=== PATIENT | male | born 1945 ===

== ENCOUNTER 2017-12-22 12:38 | Inpatient (IN) | payer MEDICARE ==
[2017-12-22 12:38] VITALS: BMI 25.7
[2017-12-22 15:02] LABS: BASO # 0.1 K/uL (0.0-0.2); BASO % 0.7 % (0.0-2.0); EOS # 0.2 K/uL (0.0-0.7); EOS % 1.8 % (0.0-4.0); HEMOGLOBIN 12.3 g/dL (12.0-18.0); LYMPH # 1.8 K/uL (1.0-4.3); LYMPH % 21.2 % (20.0-40.0); MEAN CELL VOLUME 88.2 fl (80.0-94.0); MEAN CORPUSCULAR HEMOGLOBIN 29.8 pg (27.0-31.0); MEAN CORPUSCULAR HGB CONC 33.8 g/dL (33.0-37.0); MEAN PLATELET VOLUME 7.5 fl (7.2-11.7); MONO # 0.7 K/uL (0.0-0.8); MONO % 8.4 % (0.0-10.0); NEUT # 5.9 K/uL (1.8-7.0); NEUT % 67.9 % (50.0-75.0); NRBC % 0.1 % (0.0-0.0); RBC 4.11 Mil/uL (4.40-5.90); RED CELL DISTRIBUTION WIDTH 13.2 % (11.5-14.5); WHITE BLOOD COUNT 8.7 K/uL (4.8-10.8)
[2017-12-22 15:11] LABS: VENOUS BLOOD GAS BASE EXCESS 5.1 mmol/L (0.0-2.0); VENOUS BLOOD GAS PCO2 50 mmHg (40-60); VENOUS BLOOD GAS PO2 30 mm/Hg (30-55)
[2017-12-22 15:18] LABS: ALB/GLOB RATIO 1.1 (1.0-2.1); ALT/SGPT 29 U/L (21-72); AST/SGOT 41 U/L (17-59); BLOOD UREA NITROGEN 17 mg/dl (9-20); CALCIUM 9.5 mg/dL (8.4-10.2); GFR AFRICAN-AMERICAN > 60; GFR NON-AFRICAN AMERICAN > 60
--- NOTE | 2017-12-22 15:25 | CP.PCM.CON ---
History of Present Illness - History of Present Illness History of Present Illness: Podiatry Consult Note for attending Dr. Longo 72 year old male patient with PMHx of dementia, cerebral palsy was seen and evaluated in ED accompanied by his brother for posterior left leg wound. Patient was discharged from the hospital with a PICC line for IV Vancomycin and Cefepime a month ago but never followed up and pulled out his PICC line. Patient also reports that he was seen in the ED at the end of last month. Patient wound was exposed and patient doesn't do daily dressing for it. Patient brother states that the patient went twice to be admitted but he wasn't. He is AAOx3 and NAD at time of visit. Patient denies any other pedal complaints at this time. Denies any recent N/V/F/C/CP or SOB PMHx: dementia, cerebral palsy PSH: Hip replacement, leg wound debridement Allergies: NKDA SHx: Denies tobacco, alcohol or illicit drug use Past Patient History - Infectious Disease Hx of Infectious Diseases: None - Past Social History Smoking Status: Never Smoked - CARDIAC Hx Hypercholesterolemia: Yes (denies) Hx Hypertension: Yes (denies) - NEUROLOGICAL Hx Dementia: Yes - MUSCULOSKELETAL/RHEUMATOLOGICAL Hx Arthritis: Yes Hx Fractures: Yes (left hip) - PSYCHIATRIC Hx Substance Use: No - SURGICAL HISTORY Hx Joint Replacement: Yes (hip sx uses walker) - ANESTHESIA Hx Anesthesia: Yes Hx Anesthesia Reactions: No Hx Malignant Hyperthermia: No Meds Allergies/Adverse Reactions: Allergies Allergy/AdvReac Type Severity Reaction Status Date / Time No Known Allergies Allergy Verified 12/18/17 11:38 - Medications Medications: Current Medications Mupirocin (Bactroban Ointment) 1 applic TOP BID NIURKA Physical Exam - Constitutional Appears: Well, Non-toxic, No Acute Distress - Head Exam Head Exam: ATRAUMATIC, NORMOCEPHALIC - Extremities Exam Additional comments: Left LE focused exam: VASC: DP is 2/4, PT is 1/4. Cap refill time to all digits was <3 seconds. Minimal Non-pitting edema noted to distal 1/3 of lower leg. Skin temperature warm to cool from proximal to distal WNL DERM: Left posterior leg partial thickness ulceration noted along course of the lower 2/3 of Achilles tendon. Ulcer measures 6.7 x 2.8 X 0.5 cm which appears fibrotic necrotic 60:40. No undermining not tunnelling noted, no Malodor noted a this time. No active purulence or active drainage noted. no erythema, no tunneling, no tracking, no clinical signs of active infection NEURO: gross and protective sensation grossly intact b/l MSK: Mild tenderness on palpation of the wound, Pedal muscle strength graded as 5/5 to right side and 4/5 to left side on inversion and eversion resistance. ankle joint range of motion is limited to dorsiflexion and plantar flexion. - Neurological Exam Neurological exam: Alert, Oriented x3 - Psychiatric Exam Psychiatric exam: Normal Affect, Normal Mood Results - Vital Signs Recent Vital Signs: Last Vital Signs Temp 98.2 F 12/22/17 13:24 Pulse 84 12/22/17 13:24 Resp 18 12/22/17 13:24 BP 110/73 12/22/17 13:24 Pulse Ox 99 12/22/17 13:24 - Labs Result Diagrams: 12/22/17 14:56 Labs: Laboratory Results - last 24 hr 12/22/17 14:56 WBC 8.7 RBC 4.11 L Hgb 12.3 Hct 36.3 MCV 88.2 MCH 29.8 MCHC 33.8 RDW 13.2 Plt Count 340 MPV 7.5 Neut % (Auto) 67.9 Lymph % (Auto) 21.2 [place] % (Auto) 8.4 Eos % (Auto) 1.8 Baso % (Auto) 0.7 Neut # (Auto) 5.9 Lymph # (Auto) 1.8 [place] # (Auto) 0.7 Eos # (Auto) 0.2 Baso # (Auto) 0.1 Assessment & Plan - Assessment and Plan (Free Text) Assessment: 72 year old male seen and evaluated at the ED for posterior left leg wound Plan: Patient seen and evaluated Plan discussed with attending Dr. Longo Afebrile, absent leukocytosis Patient given one dose of Vancomycin and zosyn Wound culture was taken and sent to the lab. Wound dressing done using Xeroform, DSD and kurlix Patient instructed to keep dressings clean, dry and intact Patient will be admitted to the hospital by the primary team Patient will be followed in house by the podiatry team - Date & Time Date: 12/22/17 Time: 15:44
--- NOTE | 2017-12-22 15:34 | CARD ---
APPROVED REPORT Date of service: 12/22/2017 EKG Measurement Heart [id number] <Conclusion> Normal sinus rhythm Normal ECG
--- NOTE | 2017-12-22 16:07 | RAD ---
Date of service: 12/22/2017 PROCEDURE: Left Foot Radiographs. HISTORY: left heel ulcer COMPARISON: None. FINDINGS: BONES: Normal. No fracture. JOINTS: Normal. SOFT TISSUES: Normal. OTHER FINDINGS: None. IMPRESSION: Normal left foot radiographs. No plain radiographic evidence of osteomyelitis.
[2017-12-22] MEDS ORDERED: Piperacillin/Tazobact 3.375 GM in Sodium Chloride 0.9% 100 ML IV ONE (16:13)
[2017-12-22] MEDS ORDERED: Piperacillin/Tazobact 3.375 gm Inj IVPB ONE (16:17)
--- NOTE | 2017-12-22 16:40 | RAD ---
Date of service: 12/22/2017 HISTORY: admission, left foot ulcer COMPARISON: No prior. FINDINGS: LUNGS: No active pulmonary disease. PLEURA: No significant pleural effusion identified, no pneumothorax apparent. CARDIOVASCULAR: Normal. OSSEOUS STRUCTURES: Leftward thoracic convexity. Mild thoracic spondylosis. VISUALIZED UPPER ABDOMEN: Normal. OTHER FINDINGS: None. IMPRESSION: No active cardiopulmonary pathology noted
--- NOTE | 2017-12-22 17:01 | ED PDOC ---
HPI: General Adult Time Seen by Provider: 12/22/17 13:49 Chief Complaint (Nursing): Wound Check Chief Complaint (Provider): Wound, left heel History Per: Patient History/Exam Limitations: no limitations Onset/Duration Of Symptoms: Days Have you had recent travel within the past 21 days to any of the following countries: [place], [place], [place] or [place]?: No Current Symptoms Are (Timing): Still Present Additional Complaint(s): 72 yo male with history of dementia, non-compliant with medications, sent to ER by Dr. Longo for admission and treatment of right heel ulcer. Pt is with brother. Pt has been seen at [facility] but has not been taking his out patient antibiotics. According to podiatry pt also had PICC line at one point but removed it at home. Pt denies fever/chills. Pt lives alone but brother states he is in contact regularly. Past Medical History Reviewed: Historical Data, Nursing Documentation, Vital Signs Vital Signs: Last Vital Signs Temp 97.6 F 12/22/17 16:21 Pulse 61 12/22/17 16:21 Resp 19 12/22/17 16:21 BP 130/50 L 12/22/17 16:21 Pulse Ox 100 12/22/17 16:21 - Medical History PMH: Arthritis, Dementia, Fractures (left hip) Denies: HTN (denies), Hypercholesterolemia (denies) - Family History Family History: States: Unknown Family Hx - Immunization History Hx Tetanus Toxoid Vaccination: Yes Hx Influenza Vaccination: Yes Hx Pneumococcal Vaccination: Yes - Home Medications Home Medications: Ambulatory Orders Medication Instructions Recorded Memantine HCl [Namenda Xr] 14 mg PO DAILY 12/22/17 - Allergies Allergies/Adverse Reactions: Allergies Allergy/AdvReac Type Severity Reaction Status Date / Time No Known Allergies Allergy Verified 12/18/17 11:38 Review of Systems ROS Statement: Except As Marked, All Systems Reviewed And Found Negative Constitutional: Negative for: Fever, Chills Cardiovascular: Negative for: Chest Pain Respiratory: Negative for: Shortness of Breath Gastrointestinal: Negative for: Nausea, Vomiting Musculoskeletal: Negative for: Neck Pain Skin: Positive for: Other Neurological: Negative for: Weakness Physical Exam - Reviewed Nursing Documentation Reviewed: Yes Vital Signs Reviewed: Yes - Physical Exam Appears: Positive for: Well, Non-toxic, No Acute Distress Head Exam: Positive for: ATRAUMATIC, NORMAL INSPECTION, NORMOCEPHALIC Skin: Positive for: Warm. Negative for: Normal Color (Unlcer, left heel ) Eye Exam: Positive for: Normal appearance ENT: Positive for: Normal ENT Inspection Neck: Positive for: Normal, Painless ROM Cardiovascular/Chest: Positive for: Regular Rate, Rhythm Respiratory: Positive for: Normal Breath Sounds. Negative for: Accessory Muscle Use, Respiratory Distress Gastrointestinal/Abdominal: Positive for: Normal Exam, Soft. Negative for: Tenderness Back: Positive for: Normal Inspection Extremity: Positive for: Normal ROM Neurologic/Psych: Positive for: Alert, Oriented - Laboratory Results Result Diagrams: 12/22/17 14:56 12/22/17 14:56 - ECG O2 Sat by Pulse Oximetry: 100 Medical Decision Making Medical Decision Making: Labs normal. IV antibiotics ordered. XR of the foot normal. Disposition - Clinical Impression Clinical Impression: Cellulitis, Leg ulcer, left - Patient ED Disposition Is Patient to be Admitted: Yes - Disposition Disposition Time: 16:13 Condition: STABLE
[2017-12-22] MEDS: Piperacillin/Tazobact 3.375 GM in Sodium Chloride 0.9% 100 ML IVPB SCH (23:25)
[2017-12-23] MEDS: Piperacillin/Tazobact 3.375 GM in Sodium Chloride 0.9% 100 ML IVPB SCH ×4 (04:07→20:59)
[2017-12-23 06:39] LABS: HEMOGLOBIN 11.2 g/dL (12.0-18.0); MEAN CELL VOLUME 90.2 fl (80.0-94.0); MEAN CORPUSCULAR HEMOGLOBIN 29.5 pg (27.0-31.0); MEAN CORPUSCULAR HGB CONC 32.7 g/dL (33.0-37.0); RBC 3.81 Mil/uL (4.40-5.90); RED CELL DISTRIBUTION WIDTH 13.3 % (11.5-14.5); WHITE BLOOD COUNT 8.7 K/uL (4.8-10.8)
[2017-12-23 07:29] LABS: LDL CHOLESTEROL 71 mg/dL (0-129)
[2017-12-23 07:34] LABS: T4 5.58 ug/dl (5.5-11.0)
[2017-12-23 07:55] LABS: ALB/GLOB RATIO 1.1 (1.0-2.1); ALBUMIN 3.3 g/dL (3.5-5.0); ALT/SGPT 27 U/L (21-72); AST/SGOT 27 U/L (17-59); BLOOD UREA NITROGEN 23 mg/dl (9-20); CALCIUM 8.9 mg/dL (8.4-10.2); GFR AFRICAN-AMERICAN > 60; GFR NON-AFRICAN AMERICAN 54; HDL CHOLESTEROL 43 MG/DL (30-70)
--- NOTE | 2017-12-23 08:22 | CP.PCM.PN ---
Subjective - Date & Time of Evaluation Date of Evaluation: 12/23/17 Time of Evaluation: 08:21 - Subjective Subjective: Podiatry progress Note for attending Dr. Longo 72 year old male patient was seen and evaluated in bedside for posterior left leg wound. Patient was setting in bed comfortably. Patient is AAOx3 and in no acute distress at time of visit. Patient denies any pain in his left foot ulcer site. Patient denies any other pedal complaints at this time. Denies any overnight N/V/F/C/CP or SOB. Patient denies any overnight acute events. Objective - Vital Signs/Intake and Output Vital Signs (last 24 hours): Temp Pulse Resp BP Pulse Ox 98.6 F 60 19 95/59 L 95 12/23/17 04:00 12/23/17 04:00 12/23/17 04:00 12/23/17 04:00 12/23/17 04:00 - Medications Medications: Current Medications Vancomycin HCl 1 gm/ Sodium (Chloride) 250 mls @ 166.667 mls/hr IVPB Q12 NIURKA PRN Reason: Protocol Last Admin: 12/22/17 21:43 Dose: 166.667 mls/hr Piperacillin Sod/Tazobactam (Sod 3.375 gm/ Sodium Chloride) 100 mls @ 100 mls/ hr IVPB Q6 NIURKA PRN Reason: Protocol Last Admin: 12/23/17 04:07 Dose: 100 mls/hr Memantine (Namenda) 5 mg PO BID NIURKA Mupirocin (Bactroban Ointment) 1 applic TOP BID NIURKA Last Admin: 12/22/17 19:55 Dose: Not Given - Labs Labs: 12/23/17 05:50 12/23/17 05:50 - Constitutional Appears: Well, Non-toxic, No Acute Distress - Head Exam Head Exam: ATRAUMATIC, NORMOCEPHALIC - Extremities Exam Additional comments: Left LE focused exam: VASC: DP is 2/4, PT is 1/4. Cap refill time to all digits was < 3 seconds. Minimal Non-pitting edema noted to distal 1/3 of lower leg. Skin temperature warm to cool from proximal to distal. DERM: Left posterior lower leg ulceration noted along course of the lower 2/3 of Achilles tendon. Ulcer measures 6.7 x 2.8 X 0.5 cm which appears fibrotic necrotic: granular 50:20:30. No undermining or tunnelling noted, no Malodor noted a this time. No active drainage noted. no erythema, no tunneling, no tracking or probing to bone, no clinical signs of active infection. NEURO: gross and protective sensation grossly intact b/l MSK: Mild tenderness on palpation of the wound, Pedal muscle strength is 4/5 to left side on inversion and eversion resistance. ankle joint range of motion is limited to dorsiflexion and plantar flexion. - Neurological Exam Neurological Exam: Alert, Awake, Oriented x3 - Psychiatric Exam Psychiatric exam: Normal Affect, Normal Mood Assessment and Plan - Assessment and Plan (Free Text) Assessment: 72 year old male seen and evaluated at the ED for posterior left leg wound Plan: Patient seen and evaluated Plan discussed with attending Dr. Longo Afebrile, absent leukocytosis Foot X-ray doesn't show any evidence of osteomyelitis. Patientis on Vancomycin and Zosyn currently. Wound culture are pending. Wound dressing done using Bactroban, Xeroform, DSD and kurlix Patient instructed to keep dressings clean, dry and intact Patient will be followed in house by the podiatry team
--- NOTE | 2017-12-23 12:15 | CP.PCM.CON ---
History of Present Illness - History of Present Illness History of Present Illness: 72M PMH dementia, cerebral palsy seen for posterior left leg wound. Patient was recently discharged from the hospital with a PICC line for IV Vancomycin and Cefepime but never followed up and pulled out his PICC line. Had surgery for same problem at [facility] back in November Patient states that he is having pain in the back of his leg but has not noticed any redness, malodor or drainage. Meds: See MAR All: NKDA PSH: Hip replacement, leg wound debridement FHx: Unremarkable SHx: Denies tobacco, alcohol or illicit drug use Review of Systems - Review of Systems All systems: reviewed and no additional remarkable complaints except - Constitutional Constitutional: As Per HPI - EENT Eyes: absent: As Per HPI, Blind Spots, Blurred Vision, Change in Vision, Decreased Night Vision, Diplopia, Discharge, Dry Eye, Exophthalmos, Floaters, Irritation, Itchy Eyes, Loss of Peripheral Vision, Pain, Photophobia, Requires Corrective Lenses, Sees Flashes, Spots in Vision, Tunnel Vision, Other Visual Disturbances, Loss of Vision, Other Ears: absent: As Per HPI, Decreased Hearing, Ear Discharge, Ear Pain, Tinnitus, Abnormal Hearing, Disequilibrium, Dizziness, Other Nose/Mouth/Throat: absent: As Per HPI, Epistaxis, Nasal Congestion, Nasal Discharge, Nasal Obstruction, Nasal Trauma, Nose Pain, Post Nasal Drip, Sinus Pain, Sinus Pressure, Bleeding Gums, Change in Voice, Dental Pain, Dry Mouth, Dysphagia, Halitosis, Hoarsness, Lip Swelling, Mouth Lesions, Mouth Pain, Odynophagia, Sore Throat, Throat Swelling, Tongue Swelling, Facial Pain, Neck Pain, Neck Mass, Other - Cardiovascular Cardiovascular: absent: As Per HPI, Acrocyanosis, Chest Pain, Chest Pain at Rest , Chest Pain with Activity, Claudication, Diaphoresis, Dyspnea, Dyspnea on Exertion, Edema, Irregular Heart Rhythm, Pain Radiating to Arm/Neck/Jaw, Leg Edema, Leg Ulcers, Lightheadedness, Orthopnea, Palpitations, Paroxysmal Nocturnal Dyspnea, Pedal Edema, Radiating Pain, Rapid Heart Rate, Slow Heart Rate, Syncope, Other - Respiratory Respiratory: absent: As Per HPI, Cough, Dyspnea, Hemoptysis, Dyspnea on Exertion , Wheezing, Snoring, Stridor, Pain on Inspiration, Chest Congestion, Excessive Mucous Production, Change in Mucous Color, Pain with Coughing, Other - Gastrointestinal Gastrointestinal: absent: As Per HPI, Abdominal Pain, Belching, Bloating, Change in Bowel Habits, Change in Stool Character, Coffee Ground Emesis, Constipation, Cramping, Diarrhea, Dyspepsia, Dysphagia, Early Satiety, Excessive Flatus, Fecal Incontinence, Heartburn, Hematemesis, Hematochezia, Loose Stools, Melena, Nausea, Odynophagia, Temesmus, Vomiting, Other - Genitourinary Genitourinary: absent: As Per HPI, Change in Urinary Stream, Difficulty Urinating, Dysuria, Flank Pain, Hematuria, Pyuria, Nocturia, Urinary Incontinence, Urinary Frequency, Urinary Hesitance, Urinary Urgency, Voiding Freq/Small Amts, Freq UTI, Hx Renal/Bladder Calculi, Hx /Renal Surgery, Bladder Distension, Other - Reproductive: Male Reproductive:Male: As Per HPI, Prepubesant, Dyspareunia, Genital Lesions, Genital Pruritis, Pelvic Pain, Sexual Dysfunction, Penile Discharge, Genital Odor, Impotence, On ED Medications, Penile Implant, Other - Musculoskeletal Musculoskeletal: As Per HPI - Integumentary Integumentary: As Per HPI - Neurological Neurological: As Per HPI - Psychiatric Psychiatric: absent: As Per HPI, Abnormal Sleep Pattern, Anhedonia, Anxiety, Auditory Hallucinations, Behavioral Changes, Change in Appetite, Change in Libido, Confusion, Depression, Difficulty Concentrating, Hallucinations, Homicidal Ideation, Hopelessness, Irritability, Memory Loss, Mood Swings, Panic Attacks, Paranoia, Suicidal Ideation, Visual Hallucinations, Tactile Hallucinations, Other - Endocrine Endocrine: absent: As Per HPI, Change in Body Appearance, Change in Libido, Cold Intolorance, Deepening of Voice, Excessive Sweating, Fatigue, Flushing, Heat Intolorance, Increase in Ring/Shoe/Hat Size, Palpitations, Polydipsia, Polyphagia, Polyuria, Other - Hematologic/Lymphatic Hematologic: absent: As Per HPI, Easy Bleeding, Easy Bruising, Lymphadenopathy, Other Past Patient History - Infectious Disease Hx of Infectious Diseases: None - Past Social History Smoking Status: Former Smoker - CARDIAC Hx Hypercholesterolemia: No (denies) Hx Hypertension: No (denies) - NEUROLOGICAL Hx Neurological Disorder: Yes Hx Dementia: Yes - MUSCULOSKELETAL/RHEUMATOLOGICAL Hx Musculoskeletal Disorders: Yes Hx Arthritis: Yes Hx Falls: Yes - PSYCHIATRIC Hx Substance Use: No - SURGICAL HISTORY Hx Joint Replacement: Yes (hip sx uses walker) Other/Comment: bilateral knee and achilles sx for cerebral palsy - ANESTHESIA Hx Anesthesia: Yes Hx Anesthesia Reactions: No Hx Malignant Hyperthermia: No Meds Allergies/Adverse Reactions: Allergies Allergy/AdvReac Type Severity Reaction Status Date / Time No Known Allergies Allergy Verified 12/18/17 11:38 - Medications Medications: Current Medications Vancomycin HCl 1 gm/ Sodium (Chloride) 250 mls @ 166.667 mls/hr IVPB Q12 NIURKA PRN Reason: Protocol Last Admin: 12/23/17 10:14 Dose: 166.667 mls/hr Piperacillin Sod/Tazobactam (Sod 3.375 gm/ Sodium Chloride) 100 mls @ 100 mls/ hr IVPB Q6 NIURKA PRN Reason: Protocol Last Admin: 12/23/17 09:00 Dose: 100 mls/hr Memantine (Namenda) 5 mg PO BID [facility] Last Admin: 12/23/17 08:58 Dose: 5 mg Mupirocin (Bactroban Ointment) 1 applic TOP BID [facility] Last Admin: 12/23/17 08:58 Dose: 1 applic Physical Exam - Constitutional Appears: No Acute Distress, Confused, Chronically Ill - Head Exam Head Exam: ATRAUMATIC, NORMOCEPHALIC - Eye Exam Eye Exam: EOMI, PERRL. absent: Scleral icterus - ENT Exam ENT Exam: Mucous Membranes Dry - Neck Exam Neck exam: Negative for: Lymphadenopathy - Respiratory Exam Respiratory Exam: Decreased Breath Sounds, NORMAL BREATHING PATTERN - Cardiovascular Exam Cardiovascular Exam: REGULAR RHYTHM, +S1, +S2 - GI/Abdominal Exam GI & Abdominal Exam: Diminished Bowel Sounds, Soft. absent: Tenderness - Rectal Exam Rectal Exam: Deferred - Exam Exam: NORMAL INSPECTION - Extremities Exam Extremities exam: Positive for: pedal pulses present. Negative for: calf tenderness, pedal edema, tenderness Additional comments: full thickness ulcer left achhiles tendon area with no pus or foul smelling drainage + eschar - Back Exam Back exam: absent: CVA tenderness (L), CVA tenderness (R), paraspinal tenderness - Neurological Exam Neurological exam: Alert, Altered, CN II-XII Intact, Reflexes Normal - Psychiatric Exam Psychiatric exam: Normal Mood - Skin Skin Exam: Dry, Intact Results - Vital Signs Recent Vital Signs: Last Vital Signs Temp 99 F 12/23/17 09:00 Pulse 74 12/23/17 09:00 Resp 20 12/23/17 09:00 BP 121/77 12/23/17 09:00 Pulse Ox 97 12/23/17 09:00 - Labs Result Diagrams: 12/23/17 05:50 12/23/17 05:50 Labs: Laboratory Results - last 24 hr 12/22/17 12/22/17 12/22/17 14:21 14:56 14:56 WBC 8.7 RBC 4.11 L Hgb 12.3 Hct 36.3 MCV 88.2 MCH 29.8 MCHC 33.8 RDW 13.2 Plt Count 340 MPV 7.5 Neut % (Auto) 67.9 Lymph % (Auto) 21.2 [place] % (Auto) 8.4 Eos % (Auto) 1.8 Baso % (Auto) 0.7 Neut # (Auto) 5.9 Lymph # (Auto) 1.8 [place] # (Auto) 0.7 Eos # (Auto) 0.2 Baso # (Auto) 0.1 pO2 30 VBG pH 7.40 VBG pCO2 50 VBG HCO3 27.9 VBG Total CO2 32.5 H VBG O2 Sat (Calc) 60.1 VBG Base Excess 5.1 H VBG Potassium 3.8 Sodium 141.0 144 Chloride 108.0 H 105 Glucose 109 Lactate 0.8 FiO2 21.0 Potassium 3.8 Carbon Dioxide 29 Anion Gap 14 BUN 17 Creatinine 0.8 Est GFR ( Amer) > 60 Est GFR (Non-Af Amer) > 60 Random Glucose 106 Hemoglobin A1c Calcium 9.5 Total Bilirubin 0.4 AST 41 ALT 29 Alkaline Phosphatase 89 Total Protein 7.7 Albumin 4.0 Globulin 3.7 Albumin/Globulin Ratio 1.1 Triglycerides Cholesterol LDL Cholesterol Direct HDL Cholesterol Thyroxine (T4) TSH 3rd Generation Venous Blood Potassium 3.8 12/23/17 12/23/17 12/23/17 05:50 05:50 05:50 WBC 8.7 RBC 3.81 L Hgb 11.2 L Hct 34.3 L MCV 90.2 D MCH 29.5 MCHC 32.7 L RDW 13.3 Plt Count 291 MPV Neut % (Auto) Lymph % (Auto) [place] % (Auto) Eos % (Auto) Baso % (Auto) Neut # (Auto) Lymph # (Auto) [place] # (Auto) Eos # (Auto) Baso # (Auto) pO2 VBG pH VBG pCO2 VBG HCO3 VBG Total CO2 VBG O2 Sat (Calc) VBG Base Excess VBG Potassium Sodium 144 Chloride 108 H Glucose Lactate FiO2 Potassium 4.8 Carbon Dioxide 27 Anion Gap 14 BUN 23 H Creatinine 1.3 Est GFR ( Amer) > 60 Est GFR (Non-Af Amer) 54 Random Glucose 99 Hemoglobin A1c 5.3 Calcium 8.9 Total Bilirubin 0.3 AST 27 ALT 27 Alkaline Phosphatase 76 Total Protein 6.4 Albumin 3.3 L Globulin 3.1 Albumin/Globulin Ratio 1.1 Triglycerides 109 Cholesterol 142 LDL Cholesterol Direct 71 HDL Cholesterol 43 Thyroxine (T4) 5.58 TSH 3rd Generation 1.06 Venous Blood Potassium Assessment & Plan (1) Dementia Status: Acute (2) Cellulitis Status: Acute (3) Leg ulcer, left Status: Acute (4) Chronic wound of extremity Status: Acute - Assessment and Plan (Free Text) Assessment: although pulses appear in tact consider Vascular eval cont wound care obtain cultures last time grew pseudomonas may need further debridement
--- NOTE | 2017-12-23 15:02 | CP.PCM.HP ---
History of Present Illness - History of Present Illness History of Present Illness: 72 year old male patient with PMHx of dementia, cerebral palsy sent to ER by Dr. Longo for admission and treatment of right heel ulcer. Patient presented to ED accompanied by his brother for posterior left leg wound. As per records and according to podiatry, Patient was discharged from the hospital with a PICC line for IV Vancomycin and Cefepime a month ago but never followed up and pulled out his PICC line at home. Denies any recent N/V/F/ C/CP or SOB. PMHx: dementia, cerebral palsy PSH: Hip replacement, leg wound debridement Allergies: NKDA SHx: Denies tobacco, alcohol or illicit drug use Present on Admission - Present on Admission Any Indicators Present on Admission: No History of DVT/PE: No History of Uncontrolled Diabetes: No Urinary Catheter: No Decubitus Ulcer Present: No Review of Systems - Review of Systems All systems: reviewed and no additional remarkable complaints except (as per HPI ) Past Patient History - Infectious Disease Hx of Infectious Diseases: None - Past Social History Smoking Status: Former Smoker - CARDIAC Hx Hypercholesterolemia: No (denies) Hx Hypertension: No (denies) - NEUROLOGICAL Hx Neurological Disorder: Yes Hx Dementia: Yes - MUSCULOSKELETAL/RHEUMATOLOGICAL Hx Musculoskeletal Disorders: Yes Hx Arthritis: Yes Hx Falls: Yes - PSYCHIATRIC Hx Substance Use: No - SURGICAL HISTORY Hx Joint Replacement: Yes (hip sx uses walker) Other/Comment: bilateral knee and achilles sx for cerebral palsy - ANESTHESIA Hx Anesthesia: Yes Hx Anesthesia Reactions: No Hx Malignant Hyperthermia: No Meds Allergies/Adverse Reactions: Allergies Allergy/AdvReac Type Severity Reaction Status Date / Time No Known Allergies Allergy Verified 12/18/17 11:38 Physical Exam - Constitutional Appears: Non-toxic, No Acute Distress - Head Exam Head Exam: ATRAUMATIC, NORMOCEPHALIC - Eye Exam Eye Exam: Normal appearance - ENT Exam ENT Exam: Mucous Membranes Moist - Respiratory Exam Respiratory Exam: Clear to Auscultation Bilateral, NORMAL BREATHING PATTERN. absent: Chest Wall Tenderness, Rales, Rhonchi, Wheezes, Respiratory Distress, Stridor - Cardiovascular Exam Cardiovascular Exam: REGULAR RHYTHM, +S1, +S2 - GI/Abdominal Exam GI & Abdominal Exam: Normal Bowel Sounds, Soft. absent: Distended, Guarding, Rebound, Rigid, Tenderness - Extremities Exam Extremities exam: Negative for: calf tenderness Additional comments: Left leg wound covered with dressing. Dressing is clean, dry, and intact. Results - Vital Signs Recent Vital Signs: Last Vital Signs Temp 99 F 12/23/17 09:00 Pulse 74 12/23/17 09:00 Resp 20 12/23/17 09:00 BP 121/77 12/23/17 09:00 Pulse Ox 97 12/23/17 09:00 - Labs Result Diagrams: 12/23/17 05:50 12/23/17 05:50 Labs: Laboratory Results - last 24 hr 12/22/17 12/22/17 12/22/17 14:21 14:56 14:56 WBC 8.7 RBC 4.11 L Hgb 12.3 Hct 36.3 MCV 88.2 MCH 29.8 MCHC 33.8 RDW 13.2 Plt Count 340 MPV 7.5 Neut % (Auto) 67.9 Lymph % (Auto) 21.2 [place] % (Auto) 8.4 Eos % (Auto) 1.8 Baso % (Auto) 0.7 Neut # (Auto) 5.9 Lymph # (Auto) 1.8 [place] # (Auto) 0.7 Eos # (Auto) 0.2 Baso # (Auto) 0.1 pO2 30 VBG pH 7.40 VBG pCO2 50 VBG HCO3 27.9 VBG Total CO2 32.5 H VBG O2 Sat (Calc) 60.1 VBG Base Excess 5.1 H VBG Potassium 3.8 Sodium 141.0 144 Chloride 108.0 H 105 Glucose 109 Lactate 0.8 FiO2 21.0 Potassium 3.8 Carbon Dioxide 29 Anion Gap 14 BUN 17 Creatinine 0.8 Est GFR ( Amer) > 60 Est GFR (Non-Af Amer) > 60 Random Glucose 106 Hemoglobin A1c Calcium 9.5 Total Bilirubin 0.4 AST 41 ALT 29 Alkaline Phosphatase 89 Total Protein 7.7 Albumin 4.0 Globulin 3.7 Albumin/Globulin Ratio 1.1 Triglycerides Cholesterol LDL Cholesterol Direct HDL Cholesterol Thyroxine (T4) TSH 3rd Generation Venous Blood Potassium 3.8 12/23/17 12/23/17 12/23/17 05:50 05:50 05:50 WBC 8.7 RBC 3.81 L Hgb 11.2 L Hct 34.3 L MCV 90.2 D MCH 29.5 MCHC 32.7 L RDW 13.3 Plt Count 291 MPV Neut % (Auto) Lymph % (Auto) [place] % (Auto) Eos % (Auto) Baso % (Auto) Neut # (Auto) Lymph # (Auto) [place] # (Auto) Eos # (Auto) Baso # (Auto) pO2 VBG pH VBG pCO2 VBG HCO3 VBG Total CO2 VBG O2 Sat (Calc) VBG Base Excess VBG Potassium Sodium 144 Chloride 108 H Glucose Lactate FiO2 Potassium 4.8 Carbon Dioxide 27 Anion Gap 14 BUN 23 H Creatinine 1.3 Est GFR ( Amer) > 60 Est GFR (Non-Af Amer) 54 Random Glucose 99 Hemoglobin A1c 5.3 Calcium 8.9 Total Bilirubin 0.3 AST 27 ALT 27 Alkaline Phosphatase 76 Total Protein 6.4 Albumin 3.3 L Globulin 3.1 Albumin/Globulin Ratio 1.1 Triglycerides 109 Cholesterol 142 LDL Cholesterol Direct 71 HDL Cholesterol 43 Thyroxine (T4) 5.58 TSH 3rd Generation 1.06 Venous Blood Potassium Assessment & Plan (1) Cellulitis Status: Acute (2) Leg ulcer, left Status: Acute (3) Dementia Status: Chronic - Assessment and Plan (Free Text) Plan: MedSurg unit Podiatry on consult, recommendations are appreciated c/w wound care as per podiatry ID on consult, recommendations are appreciated c/w IV antibiotics as per ID, on vanco and Zosyn wound cultures growing a gram neg krishna. F/u final report keep dressings clean, dry and intact will send for LE MRI to r/o OM blood Cx no growth after 24 hours Foot X-ray doesn't show any evidence of osteomyelitis. - Date & Time Date: 12/23/17 Time: 11:20
[2017-12-24] MEDS: Piperacillin/Tazobact 3.375 GM in Sodium Chloride 0.9% 100 ML IVPB SCH ×4 (04:17→22:23)
--- NOTE | 2017-12-24 06:22 | CP.PCM.PN ---
Subjective - Date & Time of Evaluation Date of Evaluation: 12/24/17 Time of Evaluation: 06:20 - Subjective Subjective: Podiatry progress Note for attending Dr. Longo 72 year old male patient was seen and evaluated in bedside for posterior left leg wound. Patient was setting in bed comfortably. Patient is AAOx3 and in no acute distress at time of visit. Patient denies any overnight pain in his left foot ulcer site. Patient denies any other pedal complaints at this time. Denies any overnight N/V/F/C/CP or SOB. Patient denies any overnight acute events. Objective - Vital Signs/Intake and Output Vital Signs (last 24 hours): Temp Pulse Resp BP Pulse Ox 97.8 F 65 19 115/62 97 12/24/17 00:00 12/24/17 00:00 12/24/17 00:00 12/24/17 00:00 12/24/17 00:00 - Medications Medications: Current Medications Vancomycin HCl 1 gm/ Sodium (Chloride) 250 mls @ 166.667 mls/hr IVPB Q12 NIURKA PRN Reason: Protocol Last Admin: 12/23/17 20:53 Dose: 166.667 mls/hr Piperacillin Sod/Tazobactam (Sod 3.375 gm/ Sodium Chloride) 100 mls @ 100 mls/ hr IVPB Q6 NIURKA PRN Reason: Protocol Last Admin: 12/24/17 04:17 Dose: 100 mls/hr Memantine (Namenda) 5 mg PO BID [facility] Last Admin: 12/23/17 16:23 Dose: 5 mg Mupirocin (Bactroban Ointment) 1 applic TOP BID [facility] Last Admin: 12/23/17 16:22 Dose: 1 applic - Labs Labs: 12/23/17 05:50 12/23/17 05:50 - Constitutional Appears: Well, Non-toxic, No Acute Distress - Head Exam Head Exam: ATRAUMATIC, NORMOCEPHALIC - Extremities Exam Additional comments: Left LE focused exam: VASC: DP is 2/4, PT is 1/4. Cap refill time to all digits was < 3 seconds. Minimal Non-pitting edema noted to distal 1/3 of lower leg. Skin temperature warm to cool from proximal to distal. NEURO: gross and protective sensation grossly intact b/l DERM: Left posterior lower leg ulceration noted along course of the lower 2/3 of Achilles tendon. Ulcer measures 6.7 x 2.8 X 0.5 cm which appears fibrotic necrotic: granular 40:30:30. No undermining or tunnelling noted, no Malodor noted a this time. No active drainage noted. no erythema, no tunneling, no tracking or probing to bone, no clinical signs of active infection. MSK: Mild tenderness on palpation of the wound, Pedal muscle strength is 4/5 to left side on inversion and eversion resistance. ankle joint range of motion is limited to dorsiflexion and plantar flexion. - Neurological Exam Neurological Exam: Alert, Awake, Oriented x3 - Psychiatric Exam Psychiatric exam: Normal Affect, Normal Mood Assessment and Plan - Assessment and Plan (Free Text) Assessment: 72 year old male seen and evaluated at the ED for posterior left leg wound Plan: Patient seen and evaluated Plan discussed with attending Dr. Longo Afebrile, absent leukocytosis Foot X-ray doesn't show any evidence of osteomyelitis. Patientis on Vancomycin and Zosyn currently. Wound culture result shows preliminary gram negative krishna growth. Wound dressing done using Bactroban, Xeroform, DSD and kurlix. Ordered Multipodus boat for the patient to wear it while he is on bed. Patient instructed to keep dressings clean, dry and intact Patient will be followed in house by the podiatry team
--- NOTE | 2017-12-24 15:57 | CP.PCM.PN ---
Subjective - Date & Time of Evaluation Date of Evaluation: 12/24/17 Time of Evaluation: 13:15 - Subjective Subjective: F/U Ulcer LLE no pain L foot ulcer Objective - Vital Signs/Intake and Output Vital Signs (last 24 hours): Temp Pulse Resp BP Pulse Ox 97.7 F 61 20 111/68 98 12/24/17 09:00 12/24/17 09:00 12/24/17 09:00 12/24/17 09:00 12/24/17 09:00 - Medications Medications: Current Medications Acetaminophen (Tylenol 325mg Tab) 650 mg PO Q4 PRN PRN Reason: Pain, Mild (1-3) Vancomycin HCl 1 gm/ Sodium (Chloride) 250 mls @ 166.667 mls/hr IVPB Q12 NIURKA PRN Reason: Protocol Last Admin: 12/24/17 11:45 Dose: 166.667 mls/hr Piperacillin Sod/Tazobactam (Sod 3.375 gm/ Sodium Chloride) 100 mls @ 100 mls/ hr IVPB Q6 NIURKA PRN Reason: Protocol Last Admin: 12/24/17 09:16 Dose: 100 mls/hr Memantine (Namenda) 5 mg PO BID [facility] Last Admin: 12/24/17 09:17 Dose: 5 mg Neomycin/Polymyxin/Bacitracin (Neosporin Oint) 1 applic TP BID [facility] - Labs Labs: 12/23/17 05:50 12/23/17 05:50 - Constitutional Appears: No Acute Distress - Head Exam Head Exam: NORMAL INSPECTION - Eye Exam Eye Exam: Normal appearance - ENT Exam ENT Exam: Normal Exam - Neck Exam Neck Exam: Normal Inspection - Respiratory Exam Respiratory Exam: Clear to Ausculation Bilateral - Cardiovascular Exam Cardiovascular Exam: REGULAR RHYTHM, +S1, +S2 - GI/Abdominal Exam GI & Abdominal Exam: Soft, Normal Bowel Sounds - Extremities Exam Extremities Exam: Tenderness (LLE on palpation) Additional comments: Left posterior lower leg ulcer, no drainage, dressing in place. - Back Exam Back Exam: NORMAL INSPECTION - Neurological Exam Neurological Exam: Alert, Oriented x3, Reflexes Normal - Psychiatric Exam Psychiatric exam: Normal Mood - Skin Skin Exam: Warm - Additional Findings Additional findings: Zosyn, Vanco , MRI L foot, PT Assessment and Plan (1) Cellulitis Status: Acute (2) Leg ulcer, left Status: Acute (3) Dementia Status: Chronic
[2017-12-24] MEDS: Neomycin/Polymyxin/Bacitracin OINT 0.5OZ TP SCH (16:02)
--- NOTE | 2017-12-24 17:40 | CP.PCM.PN ---
Subjective - Date & Time of Evaluation Date of Evaluation: 12/24/17 Time of Evaluation: 09:00 - Subjective Subjective: seen on rounds awake alert NAD afebrile Objective - Vital Signs/Intake and Output Vital Signs (last 24 hours): Temp Pulse Resp BP Pulse Ox 98 F 62 18 108/70 99 12/24/17 16:16 12/24/17 16:16 12/24/17 16:16 12/24/17 16:16 12/24/17 16:16 - Medications Medications: Current Medications Acetaminophen (Tylenol 325mg Tab) 650 mg PO Q4 PRN PRN Reason: Pain, Mild (1-3) Last Admin: 12/24/17 16:02 Dose: 650 mg Vancomycin HCl 1 gm/ Sodium (Chloride) 250 mls @ 166.667 mls/hr IVPB Q12 NIURKA PRN Reason: Protocol Last Admin: 12/24/17 11:45 Dose: 166.667 mls/hr Piperacillin Sod/Tazobactam (Sod 3.375 gm/ Sodium Chloride) 100 mls @ 100 mls/ hr IVPB Q6 NIURKA PRN Reason: Protocol Last Admin: 12/24/17 16:01 Dose: 100 mls/hr Memantine (Namenda) 5 mg PO BID [facility] Last Admin: 12/24/17 16:02 Dose: 5 mg Neomycin/Polymyxin/Bacitracin (Neosporin Oint) 1 applic TP BID [facility] Last Admin: 12/24/17 16:02 Dose: 1 applic - Labs Labs: 12/23/17 05:50 12/23/17 05:50 - Constitutional Appears: Non-toxic, Chronically Ill - Head Exam Head Exam: NORMOCEPHALIC - Eye Exam Eye Exam: PERRL - ENT Exam ENT Exam: Mucous Membranes Dry - Neck Exam Neck Exam: absent: Lymphadenopathy - Respiratory Exam Respiratory Exam: Decreased Breath Sounds - Cardiovascular Exam Cardiovascular Exam: REGULAR RHYTHM - GI/Abdominal Exam GI & Abdominal Exam: Distended - Rectal Exam Rectal Exam: Deferred - Exam Exam: NORMAL INSPECTION - Extremities Exam Extremities Exam: absent: Pedal Edema Additional comments: VASC: DP is 2/4, PT is 1/4. Cap refill time to all digits was < 3 seconds. Minimal Non-pitting edema noted to distal 1/3 of lower leg. Skin temperature warm to cool from proximal to distal. NEURO: gross and protective sensation grossly intact b/l DERM: Left posterior lower leg ulceration noted along course of the lower 2/3 of Achilles tendon. Ulcer measures 6.7 x 2.8 X 0.5 cm which appears fibrotic necrotic: granular 40:30:30. No undermining or tunnelling noted, no Malodor noted a this time. No active drainage noted. no erythema, no tunneling, no tracking or probing to bone, no clinical signs of active infection. MSK: Mild tenderness on palpation of the wound, Pedal muscle strength is 4/5 to left side on inversion and eversion resistance. ankle joint range of motion is limited to dorsiflexion and plantar flexion. - Back Exam Back Exam: absent: CVA tenderness (L), CVA tenderness (R) - Neurological Exam Neurological Exam: Alert, Awake, Oriented x3 - Psychiatric Exam Psychiatric exam: Normal Mood - Skin Skin Exam: Dry Assessment and Plan (1) Dementia Status: Chronic (2) Cellulitis Status: Acute (3) Leg ulcer, left Status: Acute (4) Chronic wound of extremity Status: Acute - Assessment and Plan (Free Text) Assessment: cultures show burkholderia species await MRI/ arterial dopplers may need OR debridement to discuss with Dr paul
[2017-12-25] MEDS: Piperacillin/Tazobact 3.375 GM in Sodium Chloride 0.9% 100 ML IVPB SCH ×3 (04:09→15:24)
--- NOTE | 2017-12-25 07:30 | CP.PCM.PN ---
Subjective - Date & Time of Evaluation Date of Evaluation: 12/25/17 Time of Evaluation: 07:28 - Subjective Subjective: Podiatry progress Note for attending Dr. Longo 72 year old male patient was seen and evaluated in bedside for posterior left leg wound. Patient was setting in bed comfortably. Patient is AAOx3 and in no acute distress at time of visit. Patient denies any overnight pain in his left leg ulcer site. Patient denies any other pedal complaints at this time. Denies any overnight N/V/F/C/CP or SOB. Patient denies any overnight acute events. Objective - Vital Signs/Intake and Output Vital Signs (last 24 hours): Temp Pulse Resp BP Pulse Ox 97.8 F 59 L 18 90/61 L 97 12/25/17 04:00 12/25/17 04:00 12/25/17 04:00 12/25/17 04:00 12/25/17 04:00 - Medications Medications: Current Medications Acetaminophen (Tylenol 325mg Tab) 650 mg PO Q4 PRN PRN Reason: Pain, Mild (1-3) Last Admin: 12/24/17 16:02 Dose: 650 mg Vancomycin HCl 1 gm/ Sodium (Chloride) 250 mls @ 166.667 mls/hr IVPB Q12 NIURKA PRN Reason: Protocol Last Admin: 12/24/17 20:50 Dose: 166.667 mls/hr Piperacillin Sod/Tazobactam (Sod 3.375 gm/ Sodium Chloride) 100 mls @ 100 mls/ hr IVPB Q6 NIURKA PRN Reason: Protocol Last Admin: 12/25/17 04:09 Dose: 100 mls/hr Memantine (Namenda) 5 mg PO BID [facility] Last Admin: 12/24/17 16:02 Dose: 5 mg Neomycin/Polymyxin/Bacitracin (Neosporin Oint) 1 applic TP BID [facility] Last Admin: 12/24/17 16:02 Dose: 1 applic - Labs Labs: 12/23/17 05:50 12/23/17 05:50 - Constitutional Appears: Well, Non-toxic, No Acute Distress - Head Exam Head Exam: ATRAUMATIC, NORMOCEPHALIC - Extremities Exam Additional comments: Left LE focused exam: VASC: DP is 2/4, PT is 1/4. Cap refill time to all digits was < 3 seconds. Minimal Non-pitting edema noted to distal 1/3 of lower leg. Skin temperature warm to cool from proximal to distal. NEURO: gross and protective sensation grossly intact b/l DERM: Left posterior lower leg ulceration noted along course of the lower 2/3 of Achilles tendon. Ulcer measures 6.7 x 2.8 X 0.5 cm which appears fibrotic necrotic: granular 40:40:20. No undermining or tunnelling noted, no Malodor noted a this time. No active drainage noted. no erythema, no tunneling, no tracking or probing to bone, no clinical signs of active infection. MSK: Mild tenderness on palpation of the wound, Pedal muscle strength is 4/5 to left side on inversion and eversion resistance. ankle joint range of motion is limited to dorsiflexion and plantar flexion. - Neurological Exam Neurological Exam: Alert, Awake, Oriented x3 - Psychiatric Exam Psychiatric exam: Normal Affect, Normal Mood Assessment and Plan - Assessment and Plan (Free Text) Assessment: 72 year old male seen and evaluated at the ED for posterior left leg wound Plan: Patient seen and evaluated Plan discussed with attending Dr. Longo Afebrile, absent leukocytosis Foot X-ray doesn't show any evidence of osteomyelitis. Patientis on Vancomycin and Zosyn currently. Wound culture result shows Burkholderia Cepacia. Wound dressing done using Bactroban, Xeroform, DSD and kurlix. Patient and nursing staff instructed to wear the soft boat while he is on bed. Patient and nursing staff instructed to wear the surgical shoe while he is ambulating. Patient instructed to keep dressings clean, dry and intact. Patient expressed verbal understanding. Patient will be taken to the OR for debridement Thursday12/30/2017. Patient will be followed in house by the podiatry team
[2017-12-25 08:00] VITALS: RESP 20
[2017-12-25] MEDS: Neomycin/Polymyxin/Bacitracin OINT 0.5OZ TP SCH ×3 (08:05→17:14)
[2017-12-25] MEDS ORDERED: Pantoprazole 40 mg EC Tab PO SCH (11:45)
[2017-12-25] MEDS ORDERED: Enoxaparin 40 mg Syringe SC SCH (11:45)
--- NOTE | 2017-12-25 14:25 | CP.PCM.PCO ---
Assessment/Plan - Assessment/Plan Assessment (Free Text): Pt stable, getting IV abx. Per Dr. Felipe and Dr. Zavala, pt can be discharged to [facility] and return on Thursday12/30/17 for planned podiatry surgery. Pt to stay on same antibiotics, Vanco and Zosyn as per Dr. Felipe.
--- NOTE | 2017-12-25 14:31 | CP.PCM.PN ---
Subjective - Date & Time of Evaluation Date of Evaluation: 12/25/17 Time of Evaluation: 09:00 - Subjective Subjective: AWAKE ALERT AFEB NAD Objective - Vital Signs/Intake and Output Vital Signs (last 24 hours): Temp Pulse Resp BP Pulse Ox 98.4 F 75 20 103/63 98 12/25/17 08:46 12/25/17 08:46 12/25/17 08:46 12/25/17 08:46 12/25/17 08:46 - Medications Medications: Current Medications Acetaminophen (Tylenol 325mg Tab) 650 mg PO Q4 PRN PRN Reason: Pain, Mild (1-3) Last Admin: 12/24/17 16:02 Dose: 650 mg Enoxaparin Sodium (Lovenox) 40 mg SC DAILY NIURKA PRN Reason: Protocol Last Admin: 12/25/17 12:12 Dose: 40 mg Vancomycin HCl 1 gm/ Sodium (Chloride) 250 mls @ 166.667 mls/hr IVPB Q12 NIURKA PRN Reason: Protocol Last Admin: 12/25/17 08:04 Dose: 166.667 mls/hr Piperacillin Sod/Tazobactam (Sod 3.375 gm/ Sodium Chloride) 100 mls @ 100 mls/ hr IVPB Q6 NIURKA PRN Reason: Protocol Last Admin: 12/25/17 09:57 Dose: 100 mls/hr Memantine (Namenda) 5 mg PO BID [facility] Last Admin: 12/25/17 08:06 Dose: 5 mg Neomycin/Polymyxin/Bacitracin (Neosporin Oint) 1 applic TP BID [facility] Last Admin: 12/25/17 08:05 Dose: 1 applic Pantoprazole Sodium (Protonix Ec Tab) 40 mg PO DAILY [facility] Last Admin: 12/25/17 12:12 Dose: 40 mg - Labs Labs: 12/23/17 05:50 12/23/17 05:50 - Constitutional Appears: Non-toxic, Chronically Ill - Head Exam Head Exam: NORMOCEPHALIC - Eye Exam Eye Exam: PERRL Pupil Exam: NORMAL ACCOMODATION - ENT Exam ENT Exam: Mucous Membranes Moist - Neck Exam Neck Exam: absent: Lymphadenopathy - Respiratory Exam Respiratory Exam: Decreased Breath Sounds - Cardiovascular Exam Cardiovascular Exam: REGULAR RHYTHM - GI/Abdominal Exam GI & Abdominal Exam: Distended, Soft Assessment and Plan (1) Dementia Status: Chronic (2) Cellulitis Status: Acute (3) Leg ulcer, left Status: Acute (4) Chronic wound of extremity Status: Acute - Assessment and Plan (Free Text) Assessment: WOUND SAME CONT RX FOR OR NEXT WEEK
--- NOTE | 2017-12-25 15:13 | CP.PCM.PN ---
Subjective - Subjective Subjective: F/u Ulcer LLE Denies pain in left foot ulcer No events overnight Has been Afebrile On IV antibiotics Objective - Vital Signs/Intake and Output Vital Signs (last 24 hours): Temp Pulse Resp BP Pulse Ox 98.4 F 75 20 103/63 98 12/25/17 08:46 12/25/17 08:46 12/25/17 08:46 12/25/17 08:46 12/25/17 08:46 - Medications Medications: Current Medications Acetaminophen (Tylenol 325mg Tab) 650 mg PO Q4 PRN PRN Reason: Pain, Mild (1-3) Last Admin: 12/24/17 16:02 Dose: 650 mg Enoxaparin Sodium (Lovenox) 40 mg SC DAILY NIURKA PRN Reason: Protocol Last Admin: 12/25/17 12:12 Dose: 40 mg Vancomycin HCl 1 gm/ Sodium (Chloride) 250 mls @ 166.667 mls/hr IVPB Q12 NIURKA PRN Reason: Protocol Last Admin: 12/25/17 08:04 Dose: 166.667 mls/hr Piperacillin Sod/Tazobactam (Sod 3.375 gm/ Sodium Chloride) 100 mls @ 100 mls/ hr IVPB Q6 NIURKA PRN Reason: Protocol Last Admin: 12/25/17 09:57 Dose: 100 mls/hr Memantine (Namenda) 5 mg PO BID [facility] Last Admin: 12/25/17 08:06 Dose: 5 mg Neomycin/Polymyxin/Bacitracin (Neosporin Oint) 1 applic TP BID [facility] Last Admin: 12/25/17 08:05 Dose: 1 applic Pantoprazole Sodium (Protonix Ec Tab) 40 mg PO DAILY [facility] Last Admin: 12/25/17 12:12 Dose: 40 mg - Labs Labs: 12/23/17 05:50 12/23/17 05:50 - Constitutional Appears: Non-toxic, No Acute Distress - Head Exam Head Exam: ATRAUMATIC, NORMOCEPHALIC - Eye Exam Eye Exam: Normal appearance - ENT Exam ENT Exam: Mucous Membranes Moist - Respiratory Exam Respiratory Exam: Clear to Ausculation Bilateral, NORMAL BREATHING PATTERN. absent: Rales, Rhonchi, Wheezes, Respiratory Distress - Cardiovascular Exam Cardiovascular Exam: REGULAR RHYTHM, +S1, +S2 - GI/Abdominal Exam GI & Abdominal Exam: Soft, Normal Bowel Sounds. absent: Guarding, Rigid, Tenderness - Extremities Exam Extremities Exam: absent: Calf Tenderness Additional comments: Left posterior lower leg ulcer, no drainage, dressing in place. - Back Exam Back Exam: NORMAL INSPECTION. absent: CVA tenderness (L), CVA tenderness (R) - Neurological Exam Neurological Exam: Alert Assessment and Plan (1) Cellulitis Status: Acute (2) Leg ulcer, left Status: Acute (3) Dementia Status: Chronic
--- NOTE | 2017-12-25 15:28 | CP.PCM.DIS ---
Provider - Provider Date of Admission: 12/22/17 16:13 Attending physician: Bhupendra Zavala MD Consults: ID consult, Dr. Felipe Podiatry consult, Dr. Longo Diagnosis - Discharge Diagnosis (1) Cellulitis Status: Acute (2) Leg ulcer, left Status: Acute (3) Dementia Status: Chronic Hospital Course - Lab Results Lab Results: Micro Results 12/22/17 14:50 Blood Blood Culture - Preliminary NO GROWTH AFTER 3 DAYS 12/22/17 18:20 Foot - Left Gram Stain - Final 12/22/17 18:20 Foot - Left Wound Culture - Final Burkholderia Cepacia Most Recent Lab Values WBC 8.7 K/uL (4.8-10.8) 12/23/17 05:50 RBC 3.81 Mil/uL (4.40-5.90) L 12/23/17 05:50 Hgb 11.2 g/dL (12.0-18.0) L 12/23/17 05:50 Hct 34.3 % (35.0-51.0) L 12/23/17 05:50 MCV 90.2 fl (80.0-94.0) D 12/23/17 05:50 MCH 29.5 pg (27.0-31.0) 12/23/17 05:50 MCHC 32.7 g/dL (33.0-37.0) L 12/23/17 05:50 RDW 13.3 % (11.5-14.5) 12/23/17 05:50 Plt Count 291 K/uL (130-400) 12/23/17 05:50 MPV 7.5 fl (7.2-11.7) 12/22/17 14:56 Neut % (Auto) 67.9 % (50.0-75.0) 12/22/17 14:56 Lymph % (Auto) 21.2 % (20.0-40.0) 12/22/17 14:56 Glades % (Auto) 8.4 % (0.0-10.0) 12/22/17 14:56 Eos % (Auto) 1.8 % (0.0-4.0) 12/22/17 14:56 Baso % (Auto) 0.7 % (0.0-2.0) 12/22/17 14:56 Neut # (Auto) 5.9 K/uL (1.8-7.0) 12/22/17 14:56 Lymph # (Auto) 1.8 K/uL (1.0-4.3) 12/22/17 14:56 Glades # (Auto) 0.7 K/uL (0.0-0.8) 12/22/17 14:56 Eos # (Auto) 0.2 K/uL (0.0-0.7) 12/22/17 14:56 Baso # (Auto) 0.1 K/uL (0.0-0.2) 12/22/17 14:56 pO2 30 mm/Hg (30-55) 12/22/17 14:21 VBG pH 7.40 (7.32-7.43) 12/22/17 14:21 VBG pCO2 50 mmHg (40-60) 12/22/17 14:21 VBG HCO3 27.9 mmol/L 12/22/17 14:21 VBG Total CO2 32.5 mmol/L (22-28) H 12/22/17 14:21 VBG O2 Sat (Calc) 60.1 % (40-65) 12/22/17 14:21 VBG Base Excess 5.1 mmol/L (0.0-2.0) H 12/22/17 14:21 VBG Potassium 3.8 mmol/L (3.6-5.2) 12/22/17 14:21 Sodium 141.0 mmol/L (132-148) 12/22/17 14:21 Chloride 108.0 mmol/L (98-107) H 12/22/17 14:21 Glucose 109 mg/dL (75-110) 12/22/17 14:21 Lactate 0.8 mmol/L (0.7-2.1) 12/22/17 14:21 FiO2 21.0 % 12/22/17 14:21 Sodium 144 mmol/l (132-148) 12/23/17 05:50 Potassium 4.8 MMOL/L (3.6-5.0) 12/23/17 05:50 Chloride 108 mmol/L (98-107) H 12/23/17 05:50 Carbon Dioxide 27 mmol/L (22-30) 12/23/17 05:50 Anion Gap 14 (10-20) 12/23/17 05:50 BUN 23 mg/dl (9-20) H 12/23/17 05:50 Creatinine 1.3 mg/dl (0.8-1.5) 12/23/17 05:50 Est GFR ( Amer) > 60 12/23/17 05:50 Est GFR (Non-Af Amer) 54 12/23/17 05:50 Random Glucose 99 mg/dL (75-110) 12/23/17 05:50 Hemoglobin A1c 5.3 % (4.2-6.5) 12/23/17 05:50 Calcium 8.9 mg/dL (8.4-10.2) 12/23/17 05:50 Total Bilirubin 0.3 mg/dl (0.2-1.3) 12/23/17 05:50 AST 27 U/L (17-59) 12/23/17 05:50 ALT 27 U/L (21-72) 12/23/17 05:50 Alkaline Phosphatase 76 U/L (38-126) 12/23/17 05:50 Total Protein 6.4 G/DL (6.3-8.2) 12/23/17 05:50 Albumin 3.3 g/dL (3.5-5.0) L 12/23/17 05:50 Globulin 3.1 gm/dL (2.2-3.9) 12/23/17 05:50 Albumin/Globulin Ratio 1.1 (1.0-2.1) 12/23/17 05:50 Triglycerides 109 mg/DL (0-149) 12/23/17 05:50 Cholesterol 142 mg/dL (0-199) 12/23/17 05:50 LDL Cholesterol Direct 71 mg/dL (0-129) 12/23/17 05:50 HDL Cholesterol 43 MG/DL (30-70) 12/23/17 05:50 Thyroxine (T4) 5.58 ug/dl (5.5-11.0) 12/23/17 05:50 TSH 3rd Generation 1.06 mIU/ML (0.46-4.68) 12/23/17 05:50 Venous Blood Potassium 3.8 mmol/L (3.6-5.2) 12/22/17 14:21 - Hospital Course Hospital Course: 72 year old male patient with PMHx of dementia, cerebral palsy sent to ER by Dr. Longo for admission and treatment of right heel ulcer. On admission patient was managed with broad spectrum IV antibiotics, Vanco and Zosyn. Patient was seen and follow by ID and Podiatry. pending official report of Left foot MRI, and Arterial duplex of left lower extremity. Has been afebrile on admission. Patient is stable to be discharge to [facility] and return on Thursday12/30/17 for planned podiatry surgery as per podiatry. Pt to stay on same antibiotics, Vanco and Zosyn as per Dr. Felipe. - Date & Time of H&P Date of H&P: 12/23/17 Time of H&P: 14:55 Discharge Exam - Head Exam Head Exam: ATRAUMATIC, NORMOCEPHALIC - Eye Exam Eye Exam: Normal appearance - ENT Exam ENT Exam: Mucous Membranes Moist - Respiratory Exam Respiratory Exam: Clear to PA & Lateral, NORMAL BREATHING PATTERN. absent: Rales, Rhonchi, Wheezes, Respiratory Distress, Stridor - Cardiovascular Exam Cardiovascular Exam: REGULAR RHYTHM, +S1, +S2 - GI/Abdominal Exam GI & Abdominal Exam: Normal Bowel Sounds, Soft. absent: Guarding, Rebound, Rigid, Tenderness - Extremities Exam Additional comments: Left posterior lower leg ulcer, no drainage, dressing in place. - Neurological Exam Neurological exam: Alert - Skin Skin Exam: Dry, Intact, Normal Color, Warm Discharge Plan - Discharge Medications Prescriptions: Vancomycin/0.9 % Sod Chloride [Vanco 1 Gram/150 ml-0.9% NaCl] 1 gm IV Q12 #20 plast..bag Piperacill/Tazo 3.375gm in Dex [Zosyn 3.375 Gm IV] 3.375 gm IVPB Q6 #40 bag - Follow Up Plan Condition: STABLE Disposition: HOME/ ROUTINE Instructions: Cellulitis (Skin Infection), Adult (DC), Dementia (DC) Additional Instructions: follow up with primary md 1 week Referrals: Adonis Felipe MD [Staff Provider] - Julio Lagunas MD [Family Provider] - Hitesh Longo DPM [Doctor Podiatric Medicine] -
[2017-12-25 16:06] VITALS: BP 98/59; PULSE 71; TEMP 98.8; O2SAT 99
--- NOTE | 2017-12-25 19:50 | US ---
Date of service: 12/24/2017 PROCEDURE: Duplex ultrasound of the left lower extremity arteries. HISTORY: Left posterior heel ulcer COMPARISON: None available. TECHNIQUE: Grayscale and duplex Doppler evaluation of the left common femoral, superficial femoral, popliteal, posterior tibial and dorsalis pedis arteries was performed.. FINDINGS: COMMON FEMORAL ARTERY: Patent. Maximal flow velocity of 88.0 cm/s. Robust triphasic waveform is identified. SUPERFICIAL FEMORAL ARTERY:Patent. Maximal flow velocity of 88.3 cm/s of the proximal segment, 100.7 cm/second at the mid left SFA and 108.9 cm/second distally. Robust triphasic waveforms are identified in the proximal and mid segments with borderline biphasic pattern at the distal left SFA. POPLITEAL ARTERY:Patent. Maximal flow velocity of 68.7 cm/s. Biphasic waveform identified. POSTERIOR TIBIAL ARTERY: Patent. Maximal flow velocity of 82.9 cm/s. Biphasic waveform identified. DORSALIS PEDIS ARTERY: Not evaluated due to bandage overlying the vessel. Anterior tibial artery peak systolic velocity measures 72.4 cm/sec and is patent. A biphasic waveform is identified. OTHER FINDINGS: None. IMPRESSION: No significant stenosis identified in the left common and proximal to mid superficial femoral artery segments. A [id number] stenosis suggested at the distal left SFA which persists into the popliteal arteries and runoff vasculature. The dorsalis pedis artery could not be imaged due to overlying bandage. Further characterization can provided by CT angiography with contrast unless there is a contraindication.
== END 2017-12-25 19:55 | DRG 603 ==
LOC: H.ER 12:38 → H.ERHOLD 16:13 → H.MEDSURG1 17:45
PROVIDERS: ADMIT Internal Medicine Pulmonary Disease; ATTEND Internal Medicine Pulmonary Disease
DX: L03.116 Cellulitis of left lower limb (principal); L97.429 Non-pressure chronic ulcer of left heel and midfoot with unspecified severity; B96.89 Other specified bacterial agents as the cause of diseases classified elsewhere; G80.9 Cerebral palsy, unspecified; F03.90 Unspecified dementia, unspecified severity, without behavioral disturbance, psychotic disturbance, mood disturbance, and anxiety; Z96.642 Presence of left artificial hip joint; Z91.14 Patient's other noncompliance with medication regimen; Z87.891 Personal history of nicotine dependence

== ENCOUNTER 2018-01-06 06:44 | Day surgery (SDC) | payer MEDICARE ==
--- NOTE | 2018-01-06 07:36 | CP.PCM.PN ---
Subjective - Date & Time of Evaluation Date of Evaluation: 01/06/18 Time of Evaluation: 07:31 - Subjective Subjective: 72 year old male patient seen and evaluated for left ankle wound debridement and graft application. His nursing facility states that he has been NPO since midnight and denies any fluid or food intake this morning. Patient is aware he is going to the operating room with Dr. Longo. Denies any new pedal complaints. He notes that he has had surgeries in the past and cannot recall having any adverse reactions to anesthesia. He denies any N/V/F/SOB/CP. Objective - Vital Signs/Intake and Output Vital Signs (last 24 hours): Temp Pulse Resp BP Pulse Ox 98.3 F 67 20 127/73 99 01/06/18 07:24 01/06/18 07:26 01/06/18 07:24 01/06/18 07:24 01/06/18 07:24 - Constitutional Appears: Well, Non-toxic, No Acute Distress - Head Exam Head Exam: ATRAUMATIC, NORMOCEPHALIC - Extremities Exam Additional comments: Left LE focused exam: VASC: DP is 2/4, PT is 1/4. Cap refill time to all digits was < 3 seconds. Minimal Non-pitting edema noted to distal 1/3 of lower leg. Skin temperature warm to cool from proximal to distal. NEURO: gross and protective sensation grossly intact b/l DERM: Left posterior lower leg ulceration noted along course of the lower 2/3 of Achilles tendon. Ulcer measures 6.7 x 2.8 X 0.5 cm which appears fibrotic. No undermining or tunnelling noted, no Malodor noted a this time. No active drainage noted. no erythema, no tunneling, no tracking or probing to bone, no clinical signs of active infection. ORTHO: Mild tenderness on palpation of the wound - Neurological Exam Neurological Exam: Alert, Awake Assessment and Plan - Assessment and Plan (Free Text) Assessment: 72 year old male patient seen and evaluated for left ankle wound debridement and graft application. Plan: Pt was seen and examined in SDS Pt NPO status was confirmed All pre-op testing and clearance in chart Pt has exhausted all conservative treatment at this time and is opting for surgical intervention Pt was explained procedure and post-operative course All pt's questions were answered to satisfaction No guarantees were made Pt understands all risks, benefits and complications of procedure Pt will follow-up with Dr. Longo within 1 week of surgery
--- NOTE | 2018-01-06 07:37 | CP.SDSHP ---
Same Day Surgery H & P - History Proposed Procedure: Left ankle wound debridement and graft application Pre-Op Diagnosis: Left ankle ulceration - Previous Medical/Surgical History Pain: 2.Mild Pain - Allergies Allergies: Allergies No Known Allergies Allergy (Verified 12/18/17 11:38) - Physical Exam Vital Signs: Vital Signs 01/06/18 01/06/18 07:24 07:26 Temperature 98.3 F Pulse Rate 67 67 Respiratory 20 Rate Blood Pressure 127/73 O2 Sat by Pulse 99 Oximetry - {Optional Preform as Required} Integument: Other Other Pertinent Findings: Left ankle ulceration - Impression Pt. Evaluated Today:Candidate for Anesthesia & Procedure: Yes - Date & Time Date: 01/06/18 Short Stay Discharge - Short Stay Discharge Admitting Diagnosis/Reason for Visit: L89.623 Disposition: HOME/ ROUTINE Referrals: Julio Lagunas MD [Primary Care Provider] - Additional Instructions (Diet, Activity): -Patient in good/stable condition for discharge home/facility -Pt to resume medications per medical reconciliation -Resume regular diet Please keep dressing clean, dry, & intact to surgical site -Use plastic bag over bandage for showering -Wear post op shoe at all times when ambulating -Call clinic if you see signs of infection (redness, swelling, malodor) -Please make an appointment to see Dr. Longo in office/clinic within 1 week for post-op check Progress Note/Discharge Note with Instructions: - Patient evaluated bedside in recovery s/p surgical procedure. - After surgical procedure patient in NAD - (+) Void, (+) Appetite - Capillary refill time < 3 s and NVSI intact. - Patient denies complaints at this time - Post operative instructions and plan of care explained to patient at length. - Pt. acknowledges understanding. - Patient stable for DC per podiatric surgery
[2018-01-06] MEDS ORDERED: Lidocaine 1% PF (5ml) Amp INJ ONE (07:43)
[2018-01-06] MEDS ORDERED: Bupivacaine 0.5% Inj(30mL) IJ ONE (07:43)
[2018-01-06] MEDS ORDERED: ceFAZolin IV 2 gm in Dextrose 2 GM/50 ML BAG IVPB ONE ×2 (07:43→07:49)
[2018-01-06] MEDS ORDERED: Lactated Ringer's 1,000 ML IV ONE (07:46)
[2018-01-06 07:53] VITALS: BMI 52.9
[2018-01-06] MEDS ORDERED: Sodium Chloride 0.9% 1,000 ML IV SCH (08:00)
[2018-01-06] MEDS ORDERED: Midazolam 2 MG/2 ML VIAL ONE (08:18)
[2018-01-06] MEDS ORDERED: Propofol 10 mg/ml Inj (20 ML) ONE (08:18)
[2018-01-06] MEDS ORDERED: ePHEDrine 50 mg/ml Inj ONE (08:35)
[2018-01-06] MEDS ORDERED: Phenylephrine 10 mg/ml Inj ONE (08:44)
[2018-01-06] MEDS ORDERED: Benzoin Compund Tincture 30 ML TP ONE ×2 (08:56→10:00)
[2018-01-06] MEDS ORDERED: Oxycodone/Acetaminophen 5/325 mg Tab PO PRN ×2 (09:14→09:16)
[2018-01-06] MEDS ORDERED: Lactated Ringer's 500 ML IV ONE ×2 (09:15)
--- NOTE | 2018-01-06 09:19 | PCM.SURG1 ---
Surgeon's Initial Post Op Note - Surgeon's Notes Surgeon: Dr. Hitesh Longo Customer Sales Consultant: Dr. Marie PGY1, Dr. Bourgeois PGY1 Type of Anesthesia: MAC, Local Anesthesia Administered By: Dr. Sanchez Pre-Operative Diagnosis: Left ankle chronic ulceration Operative Findings: see dictation. I: 10cc of 1:1 mix of 2% lidocaine plain and 0.5% marcaine plain. M: 6x6 Primatrix graft, 4-0 Nylon Post-Operative Diagnosis: same Operation Performed: left ankle ulcer debridment with graft application Specimen/Specimens Removed: none Estimated Blood Loss: EBL {In ML}: 5 Blood Products Given: N/A Drains Used: No Drains Post-Op Condition: Good Date of Surgery/Procedure: 01/06/18 Time of Surgery/Procedure: 09:20
[2018-01-06] MEDS ORDERED: Lactated Ringer's 1,000 ML IV SCH (09:45)
[2018-01-06] MEDS ORDERED: Oxycodone/Acetaminophen 5/325 mg Tab PO ONE (12:00)
[2018-01-06 14:49] VITALS: BP 116/67; PULSE 78; RESP 19; TEMP 97.5; O2SAT 97
--- NOTE | 2018-01-07 10:00 | OP ---
Copied To: RAS MARIE Attending MD: Hitesh Longo DPM PROCEDURE DATE: 01/06/2018 PREOPERATIVE DIAGNOSIS: Left lower leg nonhealing ulceration. POSTOPERATIVE DIAGNOSIS: Left lower leg nonhealing ulceration. NAME OF THE PROCEDURE: Left lower leg wound debridement with VERSAJET with application of PriMatrix amniotic allograft. SURGEON: Hitesh Longo DPM ASSISTANTS: 1. Ras Marie, REHANY1 2. Eliud Bourgeois PGY1 TYPE OF ANESTHESIA: IV sedation with local. ANESTHESIOLOGIST: Dave Sanchez MD INDICATION: The patient is a 72-year-old male with the above diagnosis. The patient exhausted all the conservative treatment at this time and now requires surgical intervention. The patient signed the consent after careful explanation of risks, benefits, complications, and alternatives for surgical procedure. His brother cosigned the consent over the phone. No guarantees were made nor implied. NPO status was confirmed prior to taking patient to the OR. PREPARATION: The patient was brought to the operating room and placed on the operating room table in a supine position. Then time-out was performed for identification of the correct patient and the procedure. After induction of IV sedation, the patient then turned into right lateral decubitus position. Then the patient received a total of 10 mL of 1:1 Marcaine 0.5% and lidocaine 2% in an infiltrative fashion to the left posterior lower extremity at the mallory-ulcerative area. Once local anesthesia was achieved, left lower extremity was then prepped and draped in a normal sterile manner and the procedure began. No tourniquet was used during the procedure. Attention was directed to the left posterior lower leg with approximately 9 cm x 4 cm x 0.4 cm ulceration was noted. The ulceration was noted to be composed of granular, fibrotic, and necrotic tissue 40:30:30 with no visible bone exposure, with minimal hyperkeratosis noted to the mallory-wound area. No drainage was noted to the wound bed and no malodor as well. Surgical debridement of all the , necrotic, Hyperkeratotic and non-viable tissues using sterile 15-blade done. A VERSAJET mechanical debridement tool was then used to remove all fibrotic and nonviable tissues from the wound base and wound margins. The surgical site was then irrigated using pulsed lavage with 3 L of sterile saline solution and bacitracin. After debridement, part of the Achilles tendon about 5 cm was exposed. At this time, a PriMatrix skin substitute graft was then applied to cover entirely the wound. Four sutures of nylon 3-0 used to keep the graft in place at 12, 3, 6, and 9 o'clock directions. Tincture of benzoin applied to the mallory-wound area. Then Steri-Strips used around the graft to fix it to the skin. The site was then dressed with 4 x 4 gauze, Kerlix, and Coban. POSTOPERATIVE CONDITION: The patient tolerated the anesthesia and the procedure well and was escorted to the recovery room with vital signs stable and neurovascular status intact to the left lower extremity. The patient is to weight bear as tolerated to the left lower extremity using surgical shoe. Podiatry will continue to follow the patient while in house and will be seen by Dr. Hitesh Longo at his office upon discharge. The patient is to wear Multi-Podus boots all time in bed. Patient is to keep dressing clean, dry, and intact until seen by Dr. Hitesh Longo. RAS MARIE JUAN BatistaD: 01/06/2018 11:36:47 [facility]
== END 2018-01-06 14:25 | disposition home or self-care (01) ==
LOC: H.OPSURG 06:44
PROVIDERS: ATTEND Podiatrist
DX: L89.623 Pressure ulcer of left heel, stage 3 (principal); I73.9 Peripheral vascular disease, unspecified; F03.90 Unspecified dementia, unspecified severity, without behavioral disturbance, psychotic disturbance, mood disturbance, and anxiety
CPT/HCPCS: 11043; 97161; G8978; G8979; G8980; J0690; J2001; J2250; J2370; J2704; J3010; J7030; J7120; Q4110